=== PATIENT | female | born 1995 | race Two or more races ===

== ENCOUNTER 2024-01-13 14:06 | Emergency (ER) | payer OTHER ==
[~2024-01-13] VITALS: Ht 157.5 cm; Wt 58.1 kg
[2024-01-13 15:51] LABS: HEMATOCRIT 38.6 % (36.0-45.00); HEMOGLOBIN 13.4 g/dL (12.0-15.00); MEAN CORPUSCULAR HEMOGLOBIN 33.3 pg (27.00-32.0); MEAN CORPUSCULAR HGB CONC 34.7 g/dl (32.0-36.0); PLATELET COUNT 245 K/uL (150-450); RED BLOOD COUNT 4.03 M/uL (4.00-6.00); RED CELL DISTRIBUTION WIDTH 12.8 % (11.5-14.5)
[2024-01-13 16:13] LABS: PH,URINE 6.5 (5.0-8.0); URINE APPEARANCE Clear; URINE BILIRRUBIN Negative (NEGATIVE); URINE BLOOD Moderate; URINE COLOR Yellow; URINE GLUCOSE Negative (NEGATIVE); URINE KETONE Negative (NEGATIVE); URINE LEUKOCYTE Small; URINE NITRATE Negative; URINE PROTEIN 30 (NEGATIVE)
[2024-01-13 16:15] LABS: BILIRUBIN TOTAL 0.67 mg/dL (0.3-1.2); CALCIUM 8.4 mg/dL (8.5-10.1); CREATININE SERUM 0.66 mg/dL (0.55-1.02); GFR 106.64; GLOBULINA 4.1 G/DL (2.4-3.5); POTASSIUM 3.07 mEq/L (3.5-5.1); TOTAL PROTEIN 7.1 gm/dL (6.4-8.2)
[2024-01-13 16:17] LABS: URINE BACTERIA 2640.7 uL (0.0-1933); URINE EPITHELIAL CELLS 38.6 uL (0.0-38.8); URINE RBC 238.6 uL (0.0-20.8); URINE WBC 241.6 uL (0.0-23.2)
[2024-01-13 16:34] LABS: URINE CAST 0.15 uL (0.0-1.40)
[2024-01-13 16:43] LABS: COCAINE NEGATIVE (NEGATIVE); METHADONE NEGATIVE (NEGATIVE); OPIATES NEGATIVE (NEGATIVE); THC ( Cannabinoids) POSITIVE (NEGATIVE)
[2024-01-13] MEDS ORDERED: BACTRIM DS TAB1 EACH PO (17:39)
[2024-01-13] MEDS ORDERED: CEFTRIAXONE SODIUM 1,000 MG VIAL IM ONE (18:00)
== END 2024-01-13 18:07 | disposition home or self-care (01) ==
LOC: ER 14:07
PROVIDERS: Nurse Practitioner Family
DX: N39.0 Urinary tract infection, site not specified (principal); R52 Pain, unspecified; Z20.822 Contact with and (suspected) exposure to COVID-19

== ENCOUNTER 2025-03-17 22:05 | Emergency (ER) | payer OTHER ==
[~2025-03-17] VITALS: Ht 154.9 cm; Wt 59.0 kg
[~2025-03-17 22:05] MED LIST: BACTRIM DS TAB1 EACH PO
[2025-03-17] MEDS ORDERED: RINGERS SOLUTION,LACTATED 500 ML IV ONE (23:45)
[2025-03-17 23:48] VITALS: BP 103/67; O2SAT 100
[2025-03-17] MEDS ORDERED: ONDANSETRON HCL 2 MG/ML VIAL IV STA (23:57)
[2025-03-17] MEDS ORDERED: FAMOTIDINE/PF 20 MG/2 ML VIAL IV PUSH STA (23:57)
[2025-03-18] MEDS ORDERED: FAMOTIDINE/PF 20 MG/2 ML VIAL ONE (00:13)
[2025-03-18] MEDS ORDERED: ONDANSETRON HCL 2 MG/ML VIAL ONE (00:13)
[2025-03-18 02:04] LABS: URINE APPEARANCE Clear; URINE BILIRRUBIN Negative (NEGATIVE); URINE BLOOD Small; URINE COLOR Yellow; URINE GLUCOSE Negative (NEGATIVE); URINE KETONE Negative (NEGATIVE); URINE LEUKOCYTE Negative; URINE NITRATE Negative; URINE PROTEIN Trace (NEGATIVE); URINE UROBILINOGEN 0.2 E.U./dl
[2025-03-18 02:09] LABS: INR 0.98
[2025-03-18 02:10] LABS: URINE BACTERIA 64.7 uL (0.0-1933); URINE EPITHELIAL CELLS 53.2 uL (0.0-38.8); URINE RBC 76.2 uL (0.0-20.8); URINE WBC 17.9 uL (0.0-23.2)
[2025-03-18 02:13] LABS: BASO % 0.6 % (0.1-1.2); EOS # 0.11 (0.04-0.54); EOS % 0.9 % (0.7-7.0); LYMPH # 3.24 (1.18-3.74); LYMPH % 26.2 % (19.3-53.1); MEAN PLATELET VOLUME 10.00 fl (9.4-12.4); MONO # 0.55 (0.24-0.82); MONO % 4.4 % (4.7-12.5); NEUT # 8.35 (1.56-6.13); NEUT % 67.5 % (34.0-71.1); RED CELL DISTRIBUTION WIDTH 11.4 % (11.6-14.4)
[2025-03-18 02:22] LABS: URINE CAST 0.29 uL (0.0-1.40)
[2025-03-18 02:27] LABS: BUN CREA RATIO 17.0 (7.0-25.0); CREATININE SERUM 0.54 mg/dL (0.55-1.02); GFR 133.47; GLUCOSE FASTING 92.0 mg/dL (65-100); OSMOLALITY SERUM 281.0 MOSM/KG (275-295)
[2025-03-18] MEDS ORDERED: ONDANSETRON ODT4 MG PO (05:59)
== END 2025-03-18 06:10 ==
LOC: ER 22:05
PROVIDERS: General Practice
DX: O20.8 Other hemorrhage in early pregnancy (principal); Z3A.01 Less than 8 weeks gestation of pregnancy